=== PATIENT | female | born 2000 | race African-American/Black ===

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

== ENCOUNTER 2022-10-16 11:28 | Emergency (ER) | payer MEDICAID ==
[~2022-10-16] VITALS: Ht 162.6 cm; Wt 60.7 kg
[2022-10-16 12:17] LABS: Basophils # (auto) 0.1 10 ^3/uL (0-0.2); Basophils % (auto) 0.7 % (0.0-2.0); Eosinophils # (auto) 0.2 10 ^3/uL (0-0.8); Eosinophils % (auto) 1.7 % (0.0-7.0); Hematocrit 37.6 % (36.0-46.0); Hemoglobin 13.1 g/dL (12.2-16.2); Lymphocytes # (auto) 1.7 10 ^3/uL (0.4-5.4); Lymphocytes % (auto) 16.5 % (10.0-50.0); Mean Corpuscular Hemoglobin 31.4 pg (28.0-32.0); Mean Corpuscular Hgb Conc. 34.8 g/dL (32.0-36.0); Mean Corpuscular Volume 90.4 fL (80.0-100.0); Monocytes # (auto) 0.5 10 ^3/uL (0-1.3); Monocytes % (auto) 4.9 % (0.0-12.0); Neutrophils % (auto) 76.2 % (37.0-80.0); Nucleated Red Blood Cells % 0.1 %; Red Blood Cells 4.15 10^6/uL (4.0-5.20); Red Cell Distribution Width 12.5 % (11.8-14.3); White Blood Cell 10.5 10^3/uL (4.4-10.8)
[2022-10-16 13:54] VITALS: BP 106/76
== END 2022-10-16 13:54 | disposition home or self-care (01) ==
LOC: ER 11:28
DX: O20.0 Threatened abortion (principal); F12.10 Cannabis abuse, uncomplicated; R10.2 Pelvic and perineal pain; Z3A.15 15 weeks gestation of pregnancy
CPT/HCPCS: 36415; 76805; 84702; 85025

== ENCOUNTER 2023-09-22 18:57 | Emergency (ER) | payer MEDICAID ==
[~2023-09-22] VITALS: Ht 157.5 cm; Wt 71.8 kg
[2023-09-22 19:10] VITALS: BP 146/83; PULSE 81; RESP 18; TEMP 97.6; O2SAT 96
[2023-09-22] MEDS: LIDOCAINE 2% TOPICAL JELLY 5 ML URJT TOP ONE (19:30)
[2023-09-22] MEDS ORDERED: LIDOCAINE HCL 2 % INJ 2ML MPF NEB ONE (19:30)
[2023-09-22] MEDS: LIDOCAINE 2%HCL (LOCAL ANESTH.) INJ 10ml MDV IJ ONE (20:00)
[2023-09-22] MEDS: LET TOPICAL SOLN 5 ML TOP ONE (20:30)
[2023-09-22] MEDS: BUPIVACAINE HCL IJ ONE (21:00)
[2023-09-22] MEDS: KETOROLAC TROMETH 60MG/2ML VIAL IM ONE (21:03)
[2023-09-22] MEDS: HYDROcodone-ACET 5/325MG TAB PO ONE (21:03)
[2023-09-22] MEDS: LIDOCAINE 1% HCL (LOCAL ANESTH.) INJ 20ML MDV ONE (21:09)
[2023-09-22] MEDS: cefTRIAXone SOD 1,000 MG VL IM ONE (21:10)
[2023-09-22] MEDS ORDERED: HYDR-4902 PO (21:41)
[2023-09-22] MEDS ORDERED: MUPI2OIN2 EX (21:41)
[2023-09-22] MEDS ORDERED: BACDST PO (21:41)
[2023-09-22] MEDS ORDERED: CEPH500C PO (21:41)
== END 2023-09-22 21:51 | disposition home or self-care (01) ==
LOC: ER 18:57
DX: N75.1 Abscess of Bartholin's gland (principal)
CPT/HCPCS: 56420; 96372; 99284; J0696; J1885; J2001; J3490